=== PATIENT | male | born 1990 | race Caucasian/White ===

== ENCOUNTER 2016-07-06 18:35 | Emergency (ER) | payer SELFPAY ==
[2016-07-06] MEDS ORDERED: IBUPROFEN 600 MG TABLET ONE (19:25)
--- NOTE | 2016-07-07 06:22 | RAD ---
EXAMINATION:CHEST - 2 VIEWS CLINICAL INDICATION: Chest pain increasing in severity today. COMPARISON: 05/13/2013 FINDINGS: The cardiomediastinal silhouette is within normal limits. There is no adenopathy identified. There is no pleural effusion. The lungs are clear. The osseous structures are unremarkable for age. IMPRESSION: Negative PA and lateral views of the chest. No acute cardiopulmonary process is identified.
== END 2016-07-06 19:38 | disposition home or self-care (01) ==
LOC: ED 18:35
DX: M94.0 Chondrocostal junction syndrome [Tietze] (principal); F17.210 Nicotine dependence, cigarettes, uncomplicated
CPT/HCPCS: 71020; 99283 ×2; A9270